=== PATIENT | male | born 1960 | race Caucasian/White ===

== ENCOUNTER 2022-05-21 06:57 | Outpatient (CLI) | payer BC, SELFPAY ==
--- OUTSIDE RECORDS SUMMARY | 2022-05-21 07:01 | XMS_ITS ---
:1960 Author Organization [facility] - Primary Address [address] [place] [address] Care Team Providers Name Role Phone LawrenceBashir marmolejo Unavailable Unavailable PROBLEMS Type Condition ICD9-CM Code OCZ54-MG Code Onset Condition SNO MED Code Dates Status Problem Chronic pain G89.21 Active [id number] due to trauma ALLERGIES No Known Allergies ENCOUNTERS Encounter Location Date Diagnosis [facility] - [address] 5pm January, [employer] In[employer] meron pain due to Primary [place], [place] trauma G89.21 [id number] [facility] - [address] 5pm January, [place] [address] [facility] - [address] 5pm Sep, [employer] In[employer] meron pain due to Primary [place], [place] trauma G89.21 [id number] IMMUNIZATIONS No Known Immunizations SOCIAL HISTORY Qualifiers Date Current Smoker REASON FOR REFERRAL FUNCTIONAL STATUS PLAN OF CARE Activity Details Follow Up 6 Months Reason: Future Appointment Provider Name:Bashir Byrd , 2022-08-17 11:00:00 AM, [address], 5pm, [place], [address], VITAL SIGNS Temperature 97.8 degrees Fahrenheit 2021-10-23 Height 71 in 2021-10-23 Weight 157 lbs 2021-10-23 BMI 21.89 kg/m2 2021-10-23 Blood pressure systolic 179 mm Hg 2021-10-23 Blood pressure diastolic 105 mm Hg 2021-10-23 MEDICATIONS Medication Instructions Dosage Frequency Start Date End Date Duration S tatus ibuprofen 600 orally every 6 1 tab(s) 6h Ac tive mg hours PROCEDURES No Known procedures RESULTS No Results REASON FOR VISIT F?U cannabis phone, Rt knee pain , Chronic joints pain , and back pain , Rt knee pain , cannabis cert Insurance Providers [facility] Member Patient Patient Patient Patient Patient Subscriber Subscriber Subscriber Group Insurance Plan Plan Plan Plan ID Relationship Address Phone Name Date of ID Name Date of No Type Insurance Insurance Insurance Coverage to Subscriber Address Phone Name Dates BCBS [phone] [facility] self Gene A [id number] [facility] [id number] [employer] [id number] [facility] [id number]
--- NOTE | 2022-05-21 08:19 | W.ANESCHARGE ---
Anesthesia Charges Start Date/Time Anesthesia Start Date: 05/21/22 Anesthesia Start Time: 07:57 Stop Date/Time Anesthesia Stop Date: 05/21/22 Anesthesia Stop Time: 08:12 Summary Emergency: No
--- NOTE | 2022-05-21 08:32 | W.ANESCHARGE ---
Anesthesia Charges Start Date/Time Anesthesia Start Date: 05/21/22 Anesthesia Start Time: 07:57 Stop Date/Time Anesthesia Stop Date: 05/21/22 Anesthesia Stop Time: 08:12 Summary Emergency: No
== END 2022-05-21 06:58 | disposition home or self-care (01) ==
PROVIDERS: PCP Family Medicine; Visit Provider Internal Medicine
DX: Z12.11 Encounter for screening for malignant neoplasm of colon (principal); K57.30 Diverticulosis of large intestine without perforation or abscess without bleeding; Z80.0 Family history of malignant neoplasm of digestive organs; Z86.010 Personal history of colon polyps
CPT/HCPCS: 00811; 00812; 45378; J2704

== ENCOUNTER 2023-05-23 08:28 | Outpatient (CLI) | payer MEDICAID, SELFPAY ==
--- OUTSIDE RECORDS SUMMARY | 2023-05-23 08:31 | XMS_ITS | Continuity of Care Document ---
Author Name Unknown Organization [facility] Address [address] [place] [address] Phone Care Team Providers Care Senior Security Engineer Name Role Phone Jenny CLEANING, PhD, Shabbir Unavailable Unavai lable Allergies, Adverse Reactions, Alerts Substance Reaction Status Criticality No Known Allergies Active No Inform ation Medications Medication Instructions Dosage Effective Dates (start - stop) Status Comments BUPROPION XL (unknown strength) Not Available - Active AMLODIPINE BESYLATE (unknown strength) Not Available - Active Procedures Procedure Date Office/Outpatient Visit,[facility] 2020 Advance Directives Directive Yes / No Effective Date File Name No Information Encounters Encounter Description Practice Location Reason(s) For Visit Diagnoses Date Provider Providers Copied on Encounter Office/Outpat ient Visit,[facility], [address], [place], [place], [id number], [place] tel:[phone] [facility] [place] Low back pain Jenny Shea. [facility], [address] [place] [address], [place], [address], [place]. tel:[phone] Referring Provider: Baldemar Fernandez, [facility] [address] [place] [address], [place], [address]. tel:[phone] [facility], [address], [place], [place], [id number], [place] tel:[phone] [facility] Low back painPain in thoracic spine Jenny Shea. [facility], [address] [facility] [address], [place], [address], [place]. tel:[phone] Family History Family Member Type Diagnosis Age At Onset No Information Payers Payer name Insurance type Covered constitution party ID Hank zuniga (s) [facility] [id number] [facility] [id number] Social History Type Description Quantity Date Captured Comments Alcohol Use Details Unknown Caffeine Use Details Unknown Tobacco Use Status Heavy cigarette smok er (20-39 cigs/day) Smoking Status Heavy tobacco smoker Smoking Tobacco Use Details Cigarette: No Details Available Cigarette: 1 Packs per day Sex Male Vital Signs Date / Time: Height Weight BMI Pulse Rate Blood Pressure Temperature Respiratory Rate Body Surface Area Head Circumference Head Circ. Percentile Wt./Davin. Percentile BMI percentile Pulse Ox Inhaled Ox 1:34 PM 70.00 in 72.665 kg (160.20 lbs) 22.9 8 kg/m eter (2) Chief Complaint And Reason For Visit No Information Reason For Referral Reason For Referral No Information History Of Present Illness Encounter Date Complaint History Of Prese nt Illness No Information Functional Status Date Functional Assessmen t No Information Instructions Date Instruction Additional Infor mation No Information Assessments Type Assessment Date No Information Patient Care Teams Name Effective Dates (start - stop) Status Members No Information
== END 2023-05-23 08:29 | disposition home or self-care (01) ==
PROVIDERS: PCP Family Medicine; Visit Provider Family Medicine
DX: R10.13 Epigastric pain (principal); I10 Essential (primary) hypertension; E78.5 Hyperlipidemia, unspecified
CPT/HCPCS: 80053; 83690

== ENCOUNTER 2023-06-03 09:54 | Outpatient (CLI) | payer MEDICAID, SELFPAY ==
--- OUTSIDE RECORDS SUMMARY | 2023-06-03 09:56 | XMS_ITS | Patient Health Record ---
Author Name Unknown [facility] - Primary Address [address] [place] [address] Care Team Providers Care Vacuum Truck Driver Name Role Phone Different, PCP Primary Care Provider Bashir Otero Unavailable [phone] ALLERGIES No Known Allergies REASON FOR REFERRAL No Information MEDICATIONS Medication SIG (Take, Route, Fr equency, Duration) Notes Start Date End Date Status ibuprofen 600 mg 1 tab(s) orally every 6 hours Active SOCIAL HISTORY Tobacco Use: Social History Observation Description Date Details (start date - stop date) Current Smoker NA - NA Sex Assigned At : Social History Observation Description Sex Assigned At Unknown Smoking Question Answer Notes Are you a: current smoker How often do you smoke cigarettes? every day How many cigarettes a day do you smoke? 21-30 PROBLEMS Problem Type ICD Code Onset Dates Problem Status W/U Status Risk SNOMED Code Notes Problem Chronic pain due to trauma (G89.21) Active confirmed Chronic pain due to injury (166857459) Encounters Encounter Location Date Provider Diagnosis [facility] - Primary [address] [place] [phone] 08/17/2022 Bashir Byrd [facility] - Primary [address] [place] [phone] 10/05/2022 [facility] - Primary [address] [place] [phone] 10/19/2022 Bashir Byrd Chronic pain due to trauma G89.21 ASSESSMENTS Encounter Date Diagnosis Assessment Notes Treatment Notes Treatment Clinical Notes 10/19/2022 Chronic pain due to trauma (ICD-10 - G89.21) Recertified for medical cannabis on [facility] cannabis website according to [place] law PLAN OF TREATMENT Next Appt Details Provider Name:Bashir Byrd , 09/13/2023 10:00:00 AM, [address], 5pm, [place], [address], Insurance Providers Payer Name Payer Address Payer Phone Subscriber Number Group Number Insured Name Patient Relationship to Insured Coverage Start Date Coverage End Date BS Commercial [address] [address] [place] [address] [id number] Jordan Menjivar A Self - patient is the insured MEDICAL (GENERAL) HISTORY Medical History History ICD Code joint problems back pain hypertension heart disease Surgical History Surgery Date(Month/Year) shoulder replacement bilat lT ANKLE tonsillectomy one stent placement 09/2022 Hospitalization History Reason Date(Month/Year) [facility] for 3 days 09/23/2022
--- OUTSIDE RECORDS SUMMARY | 2023-06-03 09:56 | XMS_ITS | Continuity of Care Document ---
Author Name Unknown Organization [facility] Address [address] [place] [address] Phone Care Team Providers Care Chrome Worker Name Role Phone Jenny CLEANING, PhD, Shabbir Unavailable Unavai lable Allergies, Adverse Reactions, Alerts Substance Reaction Status Criticality No Known Allergies Active No Inform ation Medications Medication Instructions Dosage Effective Dates (start - stop) Status Comments AMLODIPINE BESYLATE (unknown strength) Not Available - Active BUPROPION XL (unknown strength) Not Available - Active Procedures Procedure Date Office/Outpatient Visit,[facility] 2020 Advance Directives Directive Yes / No Effective Date File Name No Information Encounters Encounter Description Practice Location Reason(s) For Visit Diagnoses Date Provider Providers Copied on Encounter Office/Outpat ient Visit,[facility], [address], [place], [place], [id number], [place] tel:[phone] [facility] [place] Low back pain Jenny Shea. [facility], [address] [place] [address], [place], [address], [place]. tel:[phone] Referring Provider: Baldemar Fernandez, [facility] [address] [place] [address], [place], [address]. tel:[phone] [facility], [address], [place], [place], [id number], [place] tel:[phone] [facility] [place] [facility] back painPain in thoracic spine Jenny Shea. [facility], [address] [facility] [address], [place], [address], [place]. tel:[phone] Family History Family Member Type Diagnosis Age At Onset No Information Payers Payer name Insurance type Covered green party ID Hank zuniga (s) [facility] [id number] [facility] [id number] Social History Type Description Quantity Date Captured [...]
--- NOTE | 2023-06-03 10:27 | W.ANESCHARGE ---
Anesthesia Charges Start Date/Time Anesthesia Start Date: 06/03/23 Anesthesia Start Time: 10:37 Stop Date/Time Anesthesia Stop Date: 06/03/23 Anesthesia Stop Time: 11:02
--- NOTE | 2023-06-03 11:09 | W.ANESCHARGE ---
Anesthesia Charges Start Date/Time Anesthesia Start Date: 06/03/23 Anesthesia Start Time: 10:37 Stop Date/Time Anesthesia Stop Date: 06/03/23 Anesthesia Stop Time: 11:02
== END 2023-06-03 09:55 | disposition home or self-care (01) ==
LOC: OP CLINIC 09:55
PROVIDERS: PCP Family Medicine; Visit Provider Internal Medicine
DX: R19.8 Other specified symptoms and signs involving the digestive system and abdomen (principal)
CPT/HCPCS: 00731; 43239; 88305; J0360; J2405; J2704

== ENCOUNTER 2023-11-10 09:47 | Outpatient (CLI) | payer BC, SELFPAY ==
--- OUTSIDE RECORDS SUMMARY | 2023-11-10 13:49 | XMS_ITS | Continuity of Care Document ---
Author Name Unknown Organization [facility] Address [address] [place] [address] Phone Care Team Providers Care Parole Or Probation Officer Name Role Phone Jenny CLEANING, PhD, Shabbir Unavailable Unavai lable Allergies, Adverse Reactions, Alerts Substance Reaction Status Criticality No Known Allergies Active No Inform ation Medications Medication Instructions Dosage Effective Dates (start - stop) Status Comments BUPROPION XL (unknown strength) Not Available - Active AMLODIPINE BESYLATE (unknown strength) Not Available - Active Procedures Procedure Date Office/Outpatient Visit,[facility] 2020 Advance Directives Directive Yes / No Effective Date File Name No Information Encounters Encounter Description Practice Location Reason(s) For Visit Diagnoses Date Provider Providers Copied on Encounter Office/Outpat ient Visit,[facility], [address], [place], [place], [id number], [place] tel:[phone] [facility] [place] Low back pain Jenny Shea. [facility], [address] [place] [address], [place], [address], [place]. tel:[phone] Referring Provider: Baldemar Fernandez, [facility] [address] [place] [address], [place], [address]. tel:[phone] [facility], [address], [place], [place], [id number], [place] tel:[phone] [facility] [place] [facility] back painPain in thoracic spine Jenny Shea. [facility] [place], [address] [facility] [address], [place], [address], [place]. tel:[phone] Family History Family Member Type Diagnosis Age At Onset No Information Payers Payer name Insurance type Covered constitution party ID Hank zuniga (s) [facility] [id number] [facility] [id number] Social History Type Description Quantity Date Captured [...]
--- OUTSIDE RECORDS SUMMARY | 2023-11-10 13:49 | XMS_ITS | Clinical Summary ---
Author Name Unknown Organization [facility] Address [place], [place] [address] Care Team Providers Care Corset Maker Name Role Phone Nish Mahoney MD Primary Care Provider [phone] Allergies No known active allergies Medications Medication Sig Dispensed Refills Start Date End Date Status acetaminophen (TYLENOL EXTRA STRGTH) 500 mg tablet Take 1,000 mg by mouth every 6 hours if needed for Pain. Max acetaminophen dose: 4000mg in 24 hrs. 0 Active amLODIPine (NORVASC) 5 mg tabletIndications:Hy pertension Take 1 Tablet (5 mg) by mouth once daily. 30 Tablet 0 04/01/2023 Active aspirin (ECOTRIN) 81 mg enteric coated tabletIndications:Ch est pain, unspecified type Take 1 Tablet (81 mg) by mouth once daily. 30 Tablet 4 04/01/2023 Active buPROPion (WELLBUTRIN XL) 300 mg Extended-Release tabletIndications:De pression, unspecified depression type Take 1 Tablet (300 mg) by mouth once daily. 30 Tablet 0 04/01/2023 Active clopidogreL (PLAVIX) 75 mg tabletIndications:St atus post insertion of drug-eluting stent into left anterior descending (LAD) artery Take 1 Tablet (75 mg) by mouth once daily. 30 Tablet 4 04/01/2023 Active lisinopriL (PRINIVIL; ZESTRIL) 20 mg tabletIndications:Pr imary hypertension Take 1 Tablet (20 mg) by mouth once daily. 30 Tablet 4 04/01/2023 Active nicotine (NICOTROL) 10 mg inhalerIndications:T obacco abuse Inhale 10 mg by mouth every hour while awake as needed for Nicotine Craving. 168 Each 0 04/01/2023 Active nicotine 14 mg/24 hr (NICODERM; HABITROL) 14 mg/24 hr patchIndications:Tob acco use Apply 1 Patch on dry, clean, hairless skin once daily. 28 Patch 0 04/01/2023 Active rosuvastatin (CRESTOR) 20 mg tabletIndications:Ch est pain, unspecified type Take 1 Tablet (20 mg) by mouth once daily. 30 Tablet 0 04/01/2023 Active nitroglycerin (NITROSTAT) 0.4 mg sublingual tabletIndications:Ch est pain, unspecified type Place 1 Tablet (0.4 mg) under the tongue every 5 minutes if needed for Chest Pain. 25 Tablet 1 04/01/2023 Active aluminum-magnesium hydroxide-simethicon e (MAALOX PLUS EXTRA STRENGTH) 400-400-40 mg/5 mL suspensionIndication s:Nausea and vomiting, unspecified vomiting type Take 15 mL by mouth 4 times daily if needed for GI Upset. 355 mL 0 04/01/2023 Active DULoxetine (CYMBALTA) 30 mg Delayed-release capsule Take 30 mg by mouth once daily. TAKE 1 CAPSULE BY MOUTH EVERY DAY WITH 60 MG FOR TOTAL DAILY DOSE OF 90 MG 0 05/11/2023 Active DULoxetine (Cymbalta) 60 mg Delayed-release capsule Take 60 mg by mouth once daily. TAKE 1 CAPSULE BY MOUTH EVERY DAY WITH 60 MG FOR TOTAL DAILY DOSE OF 90 MG 0 Active pantoprazole (PROTONIX) 40 mg delayed-release tablet Take 40 mg by mouth once daily in the evening. 0 Active ondansetron (ZOFRAN ODT) 4 mg disintegrating tabletIndications:Na usea Place 1 Tablet (4 mg) on the tongue 3 times daily if needed for Nausea/Vomiting. 10 Tablet 0 05/16/2023 Active metoprolol tartrate (LOPRESSOR) 25 mg tabletIndications:Co ronary artery disease of [place] artery of [place] heart with stable angina pectoris (HC) Take 1 Tablet (25 mg) by mouth two times daily. 60 Tablet 1 05/16/2023 Active naltrexone (REVIA) 50 mg tabletIndications:Al cohol use Take 1 Tablet (50 mg) by mouth once daily. 30 Tablet 1 05/16/2023 Active metoclopramide HCl (REGLAN) 10 mg tabletIndications:Ca nnabis hyperemesis syndrome concurrent with and due to cannabis abuse (HC) Take 1 Tablet (10 mg) by mouth four times daily. 20 Tablet 0 07/21/2023 Active Active Problems Problem Noted Date Diagnosed Date Acute pancreatitis 05/15/2023 Gastritis 05/15/2023 Hypertensive urgency 04/01/2023 Atypical chest pain 04/01/2023 Nausea and vomiting 04/01/2023 Essential hypertension 03/31/2023 CAD (coronary artery disease) 03/31/2023 Tobacco use 03/31/2023 Alcohol withdrawal syndrome without complication 09/23/2022 Primary hypertension 09/21/2022 Mixed hyperlipidemia 09/21/2022 Coronary artery disease of n ative artery of [place] heart with stable angina pectoris 09/21/2022 Status post insertion of srini g-eluting stent into left anterior descending (LAD) artery 09/21/2022 Tobacco abuse Immunizations Name Administration Dates Next Due Tdap 04/21/2014 Social History Tobacco Use Types Packs/Day Years Used Date Smoking Tobacco: Some Days Cigarettes 0.5 40 Smokeless Tobacco: Never Tobacco Cessation:Ready to Q uit: Not Asked; Counseling Given: Not Answered Comments:1/5 pack per day. Working on quitting. Would like some help. Alcohol Use Standard Drinks/Week Comments Not Currently 0 (1 standard drink = 0.6 oz pure alcohol) trying to stay sober- last drink 1 week ago Social Connections Answer Date Recorded Frequency of Communication with Friends and Fami ly 4 04/01/2023 Financial Resource Strain Answer Date R ecorded Difficulty of Paying Living Expenses Not on file 04/01/2023 Difficulty of Paying Living Expenses 3 04/01/2023 Food Insecurity Answer Date Recorded Worried About Running Out of Food in the Last Ye ar 2 04/01/2023 Transportation Needs Answer Date Record ed Lack of Transportation (Medical) 2 04/01/2023 Housing Stability Answer Date Recorded Unable to Pay for Housing in the Last Year 3 05/16/2023 Sex and Gender Information Value Date Recorded Sex Assigned at Not on file Gender Identity Not on file Sexual Orientation Not on file Obstetrics History Last Filed Vital Signs Vital Sign Reading Time Taken Comments Blood Pressure 198/102 07/21/2023 8:42 PM CDT Pulse 90 07/21/2023 9:23 PM CDT Temperature 36.7 ??C (98.1 ??F) 07/21/2023 4:48 PM CD T Respiratory Rate 22 07/21/2023 4:48 PM CDT Oxygen Saturation 97% 07/21/2023 9:23 PM CDT Inhaled Oxygen Concentration - - Weight 68 kg (150 lb) 07/21/2023 4:48 PM CDT Height 180.3 cm (5' 11) 07/21/2023 4:48 PM CDT Body Mass Index 20.92 07/21/2023 4:48 PM CDT Plan of Treatment Health Maintenance Due Date Last Done Comments COVID-19 vaccine series (#1) 06/25/1959 Pneumococcal series for age 6-64 (1 of 2 - PCV) 1964 Depression screening for age 12+ 1970 HIV for age 15-65 1973 Hepatitis C screening for age 18-79 1976 Colonoscopy through age 75 12/25/2003 Zoster (shingles) series for age 50+ (1 of 2) 2008 Influenza for age 50-64 05/27/2023 BMI (ht and wt on same day) for age 18+ 10/20/2023 0 10/20/2022, 08/24/2022 Tetanus booster 04/21/2024 04/21/2014 Lipids for age 45-75 09/22/2027 09/22/2022 Tdap Completed 04/21/2014 Advance Directives Latest Code Status on File Code Status Date Activated Date Inactivated Comments Full Code 05/15/2023 11:33 PM 05/16/2023 4:51 PM Question Answer Comments Code Status Discussion: Reviewed Preferences Code Status History Code Status Date Activated Date Inactivated Comments Full Code 03/31/2023 10:24 PM 04/01/2023 4:27 PM Question Answer Comments Code Status Discussion: Reviewed Preferences Full Code 09/21/2022 3:38 PM 09/23/2022 2:11 PM Question Answer Comments Code Status Discussion: Unable to Assess Preferences, Provider to review later Care Teams Corset Maker Relationship Specialty Start Date End Date Nish Mahoney MD PCP - General Family Practice 03/23/14
== END 2023-11-10 09:48 | disposition home or self-care (01) ==
LOC: NFLDREF 13:39
PROVIDERS: PCP Family Medicine; Referring Provider Family Medicine; Visit Provider Family Medicine
DX: E78.5 Hyperlipidemia, unspecified (principal); Z12.5 Encounter for screening for malignant neoplasm of prostate
CPT/HCPCS: 80053; 80061; G0103

== ENCOUNTER 2025-05-13 10:10 | Outpatient (CLI) | payer OTHER, SELFPAY | END 2025-05-13 10:11 | disposition home or self-care (01) | LOC: NFLDREF 05-16 09:51 | PROVIDERS: PCP Family Medicine; Referring Provider Family Medicine; Visit Provider Family Medicine | DX: Z00.00 Encounter for general adult medical examination without abnormal findings (principal); I10 Essential (primary) hypertension; E78.5 Hyperlipidemia, unspecified; Z12.5 Encounter for screening for malignant neoplasm of prostate | CPT/HCPCS: 80053; 80061; G0103 ==